=== PATIENT | female | born 1980 | race Caucasian/White ===

== ENCOUNTER 2020-09-23 15:37 | Outpatient (CLI) | payer OTHER ==
[~2020-09-23] VITALS: Ht 157.5 cm; Wt 88.2 kg
[2020-09-23 15:52] VITALS: BP 141/74
[2020-09-23 16:13] LABS: BASOPHILS % (AUTO) 0 % (0-1); EOSINOPHILS % (AUTO) 0 % (1-7); LYMPHOCYTES % (AUTO) 14 % (22-44); MEAN CORPUSCULAR HGB CONC 34.8 g/dL (32.4-35.8); MEAN PLATELET VOLUME 8.9 fL (7.4-10.4); MONOCYTES % (AUTO) 9 % (2-9); NEUTROPHILS % (AUTO) 76 % (42-75); PLATELET COUNT 203 x10^3/uL (130-400); RED BLOOD COUNT 3.51 x10^6/uL (3.82-5.3); RED CELL DISTRIBUTION WIDTH 14.7 % (9.6-15.2)
[2020-09-23 16:18] LABS: MD NO
[2020-09-23 16:19] LABS: ALBUMIN 2.7 g/dL (3.4-5.0); ANION GAP 11 mmol/L (5-15); CALCIUM 10.9 mg/dL (8.5-10.1); CHLORIDE 107 mmol/L (98-107)
[2020-09-23 16:22] LABS: ALANINE AMINOTRANSFERASE 16 U/L (12-78); ALKALINE PHOSPHATASE 93 U/L (45-117); BILIRUBIN, DIRECT < 0.1 mg/dL (0.1-0.2); BILIRUBIN,TOTAL 0.2 mg/dL (0.2-1.0); CREATININE 0.66 mg/dL (0.55-1.02); TOTAL PROTEIN 6.3 g/dL (6.4-8.2)
[2020-09-23 17:18] LABS: MICROSCOPIC INDICATED
[2020-09-23 17:25] LABS: CREATININE,URINE RANDOM 33.3 mg/dL
[2020-09-23] MEDS ORDERED: PREN1TAB60 PO (18:16)
== END 2020-09-23 18:30 | disposition home or self-care (01) ==
LOC: LDOP 15:37
PROVIDERS: ATTEND Obstetrics & Gynecology
DX: O09.93 Supervision of high risk pregnancy, unspecified, third trimester (principal); O16.3 Unspecified maternal hypertension, third trimester; Z3A.35 35 weeks gestation of pregnancy
CPT/HCPCS: 36415; 59025; 80053; 81001; 82248; 82570; 84156; 84550; 85025; 87086

== ENCOUNTER 2020-10-07 08:39 | Outpatient (CLI) | payer OTHER ==
[~2020-10-07] VITALS: Ht 157.5 cm; Wt 87.2 kg
[~2020-10-07 08:39] MED LIST: PREN1TAB60 PO
[2020-10-07 08:55] VITALS: BP 129/64
[2020-10-07 09:00] LABS: BASOPHILS % (AUTO) 0 % (0-1); EOSINOPHILS % (AUTO) 1 % (1-7); LYMPHOCYTES % (AUTO) 15 % (22-44); MEAN CORPUSCULAR HEMOGLOBIN 34.1 pg (27.0-34.8); MEAN CORPUSCULAR HGB CONC 35.5 g/dL (32.4-35.8); MONOCYTES % (AUTO) 7 % (2-9); NEUTROPHILS % (AUTO) 77 % (42-75); PLATELET COUNT 182 x10^3/uL (130-400); RED BLOOD COUNT 3.35 x10^6/uL (3.82-5.3); RED CELL DISTRIBUTION WIDTH 14.7 % (9.6-15.2)
[2020-10-07 09:08] LABS: MD NO
[2020-10-07 09:11] LABS: ALANINE AMINOTRANSFERASE 16 U/L (12-78); ALBUMIN 2.6 g/dL (3.4-5.0); ANION GAP 6 mmol/L (5-15); CALCIUM 8.9 mg/dL (8.5-10.1); CHLORIDE 109 mmol/L (98-107); CREATININE 0.59 mg/dL (0.55-1.02)
[2020-10-07 09:13] LABS: ALKALINE PHOSPHATASE 89 U/L (45-117); BILIRUBIN,TOTAL 0.3 mg/dL (0.2-1.0)
[2020-10-07 09:29] LABS: MICROSCOPIC INDICATED
== END 2020-10-07 10:20 | disposition home or self-care (01) ==
LOC: LDOP 08:39
PROVIDERS: ATTEND Obstetrics & Gynecology
DX: O32.1XX0 Maternal care for breech presentation, not applicable or unspecified (principal); O09.513 Supervision of elderly primigravida, third trimester; O16.3 Unspecified maternal hypertension, third trimester; Z3A.37 37 weeks gestation of pregnancy
CPT/HCPCS: 36415; 59025; 80053; 81001; 82570; 84156; 84550; 85025

== ENCOUNTER 2020-10-13 20:34 | Inpatient (IN) | payer OTHER ==
[~2020-10-13] VITALS: Ht 157.5 cm; Wt 90.0 kg
[2020-10-13] MEDS ORDERED: D5%-LACTATED RINGERS 1,000 ML IV SCH (21:00)
[2020-10-13] MEDS ORDERED: TERBUTALINE 1 MG/ML, 1ML SQ PRN (21:00)
[2020-10-13] MEDS ORDERED: TERBUTALINE 1 MG/ML, 1ML IVPush PRN (21:00)
[2020-10-13] MEDS ORDERED: METOCLOPRAMIDE 5 MG/ML, 2ML IVPush PRN (21:00)
[2020-10-13] MEDS ORDERED: CALCIUM CARBONATE 500 MG TAB.CHEW PO PRN (21:00)
[2020-10-13] MEDS ORDERED: FENTANYL PF 100 MCG/2ML IV PRN (21:00)
[2020-10-13] MEDS ORDERED: SODIUM CITRATE/CITRIC ACID 30 ML UDC PO PRN (21:00)
[2020-10-13] MEDS ORDERED: OXYTOCIN 30U/ 0.9% NaCL 500ML 500 ML IV ONE (21:00)
[2020-10-13] MEDS ORDERED: ONDANSETRON 2MG/ML, 2ML IVPush PRN (21:00)
[2020-10-13] MEDS ORDERED: PLEASE ENTER HEIGHT AND WEIGHT MC SCH (21:05)
[2020-10-13 21:07] VITALS: BP 146/68
[2020-10-13] MEDS: LACTATED RINGERS 1,000 ML IV SCH (21:10)
[2020-10-13] MEDS ORDERED: NEWBORN KIT ONE (21:11)
[2020-10-13] MEDS ORDERED: OXYTOCIN 30U/ 0.9% NaCL 500ML 500 ML ONE (21:11)
[2020-10-13] MEDS ORDERED: MISOPROSTOL 25 MCG TABLET ONE (21:18)
[2020-10-13 21:22] LABS: BASOPHILS % (AUTO) 0 % (0-1); EOSINOPHILS % (AUTO) 1 % (1-7); LYMPHOCYTES % (AUTO) 19 % (22-44); MEAN CORPUSCULAR HEMOGLOBIN 33.7 pg (27.0-34.8); MEAN PLATELET VOLUME 9.2 fL (7.4-10.4); MONOCYTES % (AUTO) 9 % (2-9); NEUTROPHILS % (AUTO) 71 % (42-75); PLATELET COUNT 203 x10^3/uL (130-400); RED BLOOD COUNT 3.41 x10^6/uL (3.82-5.3); RED CELL DISTRIBUTION WIDTH 14.4 % (9.6-15.2)
[2020-10-13 21:24] LABS: MD NO
[2020-10-13] MEDS ORDERED: MISOPROSTOL 25 MCG TABLET VG PRN (21:30)
[2020-10-13 21:33] LABS: ALANINE AMINOTRANSFERASE 18 U/L (12-78); ALBUMIN 2.5 g/dL (3.4-5.0); ANION GAP 8 mmol/L (5-15); CALCIUM 9.3 mg/dL (8.5-10.1); CHLORIDE 107 mmol/L (98-107); CREATININE 0.77 mg/dL (0.55-1.02)
[2020-10-13 21:35] LABS: BILIRUBIN, DIRECT < 0.1 mg/dL (0.1-0.2)
[2020-10-13 21:36] LABS: ALKALINE PHOSPHATASE 96 U/L (45-117); BILIRUBIN,TOTAL 0.2 mg/dL (0.2-1.0); TOTAL PROTEIN 6.1 g/dL (6.4-8.2)
[2020-10-14] MEDS ORDERED: OXYTOCIN 30U/ 0.9% NaCL 500ML 500 ML IV PRN (06:00)
[2020-10-14] MEDS: LACTATED RINGERS 1,000 ML IV SCH (07:11)
[2020-10-14] MEDS: FENTANYL PF 100 MCG/2ML IVPush PRN ×2 (09:04→13:43)
[2020-10-14 16:30] VITALS: BP 135/72
[2020-10-14] MEDS ORDERED: FENTANYL/BUPIV./NS/PF 250 ML EPIDCONT ONE (20:51)
[2020-10-14] MEDS ORDERED: BUPIVACAINE 0.25% ONE (21:01)
[2020-10-14] MEDS ORDERED: EPHEDRINE 50 MG/ML, 1ML IVPush PRN (21:30)
[2020-10-14] MEDS ORDERED: NALOXONE 0.4 MG/ML, 1ML IVPush PRN (21:30)
[2020-10-14] MEDS ORDERED: FENTANYL/BUPIV./NS/PF 250 ML EPIDCONT SCH (21:30)
[2020-10-14] MEDS ORDERED: ONDANSETRON 2MG/ML, 2ML IVPush PRN (21:30)
[2020-10-14] MEDS ORDERED: LACTATED RINGERS 1,000 ML IVBOLUS PRN (21:30)
[2020-10-14] MEDS ORDERED: LACTATED RINGERS 1,000 ML IV SCH (21:30)
[2020-10-14] MEDS ORDERED: DIPHENHYDRAMINE 50 MG/ML, 1ML IVPush PRN (21:30)
[2020-10-15] MEDS ORDERED: DIPHENHYDRAMINE 50 MG/ML, 1ML IVPush ONE (04:00)
[2020-10-15] MEDS ORDERED: SODIUM CITRATE/CITRIC ACID 15 ML UDC ONE (08:46)
[2020-10-15] MEDS: AMPICILLIN 2 GM in SODIUM CHLORIDE 0.9% 100 ML IV SCH ×3 (08:53→21:20)
[2020-10-15] MEDS ORDERED: MIDAZOLAM 1 MG/ML, 2ML IV PRN (09:00)
[2020-10-15] MEDS ORDERED: ALBUTEROL SULFATE 2.5 MG/3 ML NPPB PRN (09:00)
[2020-10-15] MEDS ORDERED: MEPERIDINE/PF 25MG/0.5ML IVPush PRN (09:00)
[2020-10-15] MEDS ORDERED: ONDANSETRON 2MG/ML, 2ML IVPush PRN (09:00)
[2020-10-15] MEDS ORDERED: EPHEDRINE 50 MG/ML, 1ML IVPush PRN (09:00)
[2020-10-15] MEDS ORDERED: AZITHROMYCIN 500 MG in SODIUM CHLORIDE 0.9% 250 ML IV ONE (09:00)
[2020-10-15] MEDS ORDERED: OXYcodone 5 MG/5 ML ORAL.SOL UDC PO PRN (09:00)
[2020-10-15] MEDS ORDERED: LABETALOL 5MG/ML, 20ML IV PRN (09:00)
[2020-10-15] MEDS ORDERED: PROMETHAZINE 25 MG/ML, 1ML IV PRN (09:00)
[2020-10-15] MEDS ORDERED: hydrALAzine 20 MG/ML, 1ML IV PRN (09:00)
[2020-10-15] MEDS ORDERED: HYDROmorphone 2 MG/ML, 1ML IVPush PRN (09:00)
[2020-10-15] MEDS ORDERED: PHARMACOKINETIC CONSULTATION MC ONE (09:00)
[2020-10-15] MEDS ORDERED: GENTAMICIN PER PHARMACY MC PRN (09:00)
[2020-10-15] MEDS ORDERED: HYDROcodone/APAP 7.5-325MG/15ML UDC PO PRN (09:00)
[2020-10-15] MEDS ORDERED: FENTANYL PF 100 MCG/2ML IV PRN (09:00)
[2020-10-15] MEDS ORDERED: PROPOFOL 10 MG/ML, 20ML ONE (09:03)
[2020-10-15] MEDS ORDERED: CEFAZOLIN 1,000 MG ONE (09:03)
[2020-10-15] MEDS ORDERED: SUCCINYLCHOLINE 20 MG/ML, 10ML ONE (09:03)
[2020-10-15] MEDS ORDERED: KETOROLAC 30 MG/1 ML ONE (09:03)
[2020-10-15] MEDS ORDERED: ONDANSETRON 2MG/ML, 2ML ONE (09:03)
[2020-10-15] MEDS ORDERED: PHENYLEPHRINE 10 MG/ML ONE (09:03)
[2020-10-15] MEDS ORDERED: DEXAMETHASONE 4 MG/ML, 1ML ONE (09:03)
[2020-10-15] MEDS ORDERED: FENTANYL PF 100 MCG/2ML ONE ×2 (09:03)
[2020-10-15] MEDS ORDERED: OXYTOCIN 10 UNITS/ML, 1ML ONE (09:03)
[2020-10-15] MEDS ORDERED: EPHEDRINE 50 MG/ML, 1ML ONE (09:03)
[2020-10-15] MEDS ORDERED: morphine SULFATE/PF 0.5 MG/ML, 10ML ONE (09:04)
[2020-10-15] MEDS: KETOROLAC 30 MG/1 ML IV SCH (09:30)
[2020-10-15] MEDS: OXYTOCIN 30U/ 0.9% NaCL 500ML 500 ML IV SCH ×2 (09:30→19:30)
[2020-10-15] MEDS ORDERED: LACTATED RINGERS 1,000 ML IVBOLUS ONE (09:30)
[2020-10-15] MEDS ORDERED: ONDANSETRON 2MG/ML, 2ML IV PRN (09:30)
[2020-10-15] MEDS ORDERED: OXYcodone/APAP 5/325MG TABLET PO PRN (09:30)
[2020-10-15] MEDS ORDERED: ACETAMINOPHEN 325 MG TABLET PO PRN (09:30)
[2020-10-15] MEDS ORDERED: MISOPROSTOL 200 MCG TABLET PR PRN (09:30)
[2020-10-15] MEDS ORDERED: GENTAMICIN 140 MG in SODIUM CHLORIDE 0.9% 50 ML IV SCH (10:00)
[2020-10-15] MEDS ORDERED: GENTAMICIN 180 MG in SODIUM CHLORIDE 0.9% 100 ML IV ONE (10:00)
[2020-10-15] MEDS: LACTATED RINGERS 1,000 ML IV SCH ×4 (10:30→20:30)
[2020-10-15 12:30] VITALS: BP 125/78
[2020-10-15] MEDS: OXYcodone IR 5MG TABLET PO PRN ×2 (15:24→21:14)
[2020-10-15 16:35] VITALS: BP 134/83
[2020-10-15 17:49] LABS: BASOPHILS % (AUTO) 0 % (0-1); EOSINOPHILS % (AUTO) 0 % (1-7); LYMPHOCYTES % (AUTO) 7 % (22-44); MEAN CORPUSCULAR HEMOGLOBIN 33.4 pg (27.0-34.8); MEAN CORPUSCULAR HGB CONC 34.9 g/dL (32.4-35.8); MEAN PLATELET VOLUME 8.6 fL (7.4-10.4); MONOCYTES % (AUTO) 8 % (2-9); NEUTROPHILS % (AUTO) 86 % (42-75); PLATELET COUNT 187 x10^3/uL (130-400); RED BLOOD COUNT 2.84 x10^6/uL (3.82-5.3); RED CELL DISTRIBUTION WIDTH 14.8 % (9.6-15.2)
[2020-10-15] MEDS: GENTAMICIN 140 MG in SODIUM CHLORIDE 0.9% 50 ML IV SCH (18:16)
[2020-10-15 18:38] LABS: MD SCAN
[2020-10-15 19:24] VITALS: BP 135/81
[2020-10-15] MEDS: SIMETHICONE 80 MG CHEW TAB PO PRN (21:13)
[2020-10-15] MEDS: DOCUSATE 100 MG CAPSULE PO PRN (21:13)
[2020-10-16 01:00] VITALS: BP 124/80
[2020-10-16] MEDS: ACETAMINOPHEN 325 MG TABLET PO PRN ×2 (01:13→14:07)
[2020-10-16] MEDS: OXYcodone IR 5MG TABLET PO PRN ×6 (01:14→22:21)
[2020-10-16] MEDS: GENTAMICIN 140 MG in SODIUM CHLORIDE 0.9% 50 ML IV SCH ×2 (01:16→10:27)
[2020-10-16] MEDS: AMPICILLIN 2 GM in SODIUM CHLORIDE 0.9% 100 ML IV SCH ×2 (02:01→09:09)
[2020-10-16] MEDS: LACTATED RINGERS 1,000 ML IV SCH ×5 (02:30→18:30)
[2020-10-16] MEDS: OXYTOCIN 30U/ 0.9% NaCL 500ML 500 ML IV SCH ×2 (05:30→15:30)
[2020-10-16 05:33] VITALS: BP 122/80
[2020-10-16 07:51] VITALS: BP 119/77
[2020-10-16] MEDS: KETOROLAC 30 MG/1 ML IV SCH ×3 (09:09→21:08)
[2020-10-16] MEDS: SIMETHICONE 80 MG CHEW TAB PO PRN (09:09)
[2020-10-16] MEDS: DOCUSATE 100 MG CAPSULE PO PRN ×2 (09:09→21:08)
[2020-10-16] MEDS: PRENATAL VIT/IRON/FA 1 EACH TABLET PO SCH (09:09)
[2020-10-16 20:20] VITALS: BP 129/79
[2020-10-17] MEDS: OXYTOCIN 30U/ 0.9% NaCL 500ML 500 ML IV SCH (01:30)
[2020-10-17] MEDS: LACTATED RINGERS 1,000 ML IV SCH ×2 (02:30)
[2020-10-17] MEDS: OXYcodone IR 5MG TABLET PO PRN ×2 (02:56→08:02)
[2020-10-17] MEDS: KETOROLAC 30 MG/1 ML IV SCH ×2 (02:56→09:36)
[2020-10-17 08:00] VITALS: BP 136/84
[2020-10-17] MEDS: PRENATAL VIT/IRON/FA 1 EACH TABLET PO SCH (08:01)
[2020-10-17] MEDS: DOCUSATE 100 MG CAPSULE PO PRN (08:02)
[2020-10-17] MEDS ORDERED: KETOROLAC 30 MG/1 ML ONE (09:32)
[2020-10-17] MEDS ORDERED: MEASLES,MUMPS&RUBELLA VACC/PF 0.5 ML SQ-VACC ONE (10:00)
[2020-10-17] MEDS ORDERED: IBUP-1222 PO (11:08)
[2020-10-17] MEDS ORDERED: OXYC5CAP2 PO (11:09)
== END 2020-10-17 11:45 | disposition home or self-care (01) | DRG 788 ==
LOC: LDOP 20:34 → LDIP 20:56 → 2NW 10-15 12:08
PROVIDERS: ADMIT Obstetrics & Gynecology; ATTEND Obstetrics & Gynecology
PROC: 10D00Z1 Extraction of Products of Conception, Low, Open Approach (ICD-10-PCS; principal; 2020-10-15)
PROC: 0U7C7ZZ Dilation of Cervix, Via Natural or Artificial Opening (ICD-10-PCS; 2020-10-15)
PROC: 10H07YZ Insertion of Other Device into Products of Conception, Via Natural or Artificial Opening (ICD-10-PCS; 2020-10-15)
DX: O13.4 Gestational [pregnancy-induced] hypertension without significant proteinuria, complicating childbirth (principal); O33.9 Maternal care for disproportion, unspecified; O62.2 Other uterine inertia; O69.81X0 Labor and delivery complicated by cord around neck, without compression, not applicable or unspecified; Z37.0 Single live birth; Z3A.38 38 weeks gestation of pregnancy; Z23 Encounter for immunization; Z20.822 Contact with and (suspected) exposure to COVID-19; Z91.018 Allergy to other foods
CPT/HCPCS: 36415; 80053; 82248; 82570; 84156; 84550; 85025; 86592; 86850; 86900; 87635; 88307; 90707; G0378; J0290; J0456; J0690; J1100; J1885; J2274; J2405; J2704; J3010; J0330; J1200; J1580; J2370; J2590; J2765; J7050; J7120

== ENCOUNTER 2020-11-02 00:07 | Emergency (ER) | payer SELFPAY ==
[~2020-11-02] VITALS: Ht 157.5 cm; Wt 80.0 kg
[~2020-11-02 00:07] MED LIST changes: +IBUP-1222 PO; +OXYC5CAP2 PO
[2020-11-02] MEDS ORDERED: SODIUM CHLORIDE 0.9% 1,000ML IVBOLUS ONE (00:30)
[2020-11-02] MEDS ORDERED: SODIUM CHLORIDE FLUSH 10ML SYR IVF ONE (00:30)
[2020-11-02 00:38] LABS: BASOPHILS % (AUTO) 1 % (0-1); EOSINOPHILS % (AUTO) 3 % (1-7); LYMPHOCYTES % (AUTO) 43 % (22-44); MEAN PLATELET VOLUME 7.7 fL (7.4-10.4); MONOCYTES % (AUTO) 6 % (2-9); NEUTROPHILS % (AUTO) 48 % (42-75); PLATELET COUNT 393 x10^3/uL (130-400); RED BLOOD COUNT 3.67 x10^6/uL (3.82-5.3); RED CELL DISTRIBUTION WIDTH 14.1 % (9.6-15.2)
--- NOTE | 2020-11-02 00:41 | NUR ---
Pt arrived with VB x20 mins that has already soaked through two pads and two diapers. Pt had a on the and has minimal bleeding since tonight. Pt is conected to BP and O2 monitors, IV placed per orders and labs drawn, pt states that she feels light headed, nausea, and dizzy. Side rails up x2, US at bedside. VSS, WCTM
[2020-11-02 00:44] LABS: ALANINE AMINOTRANSFERASE 19 U/L (12-78); ALBUMIN 3.2 g/dL (3.4-5.0); ANION GAP 7 mmol/L (5-15); CALCIUM 8.6 mg/dL (8.5-10.1); CHLORIDE 108 mmol/L (98-107); CREATININE 0.76 mg/dL (0.55-1.02)
[2020-11-02 00:48] LABS: ALKALINE PHOSPHATASE 110 U/L (45-117); BILIRUBIN,TOTAL 0.2 mg/dL (0.2-1.0); TOTAL PROTEIN 6.7 g/dL (6.4-8.2)
[2020-11-02 02:12] VITALS: BP 108/58
== END 2020-11-02 04:18 | disposition home or self-care (01) ==
LOC: ED 00:20
DX: N93.8 Other specified abnormal uterine and vaginal bleeding (principal); R00.0 Tachycardia, unspecified; Z87.891 Personal history of nicotine dependence
CPT/HCPCS: 36415; 76830; 80053; 84702; 85025; 96360; 96361; 99284; J7030

== ENCOUNTER 2020-11-10 15:07 | Emergency (ER) | payer OTHER ==
[~2020-11-10] VITALS: Ht 160 cm; Wt 77.2 kg
[2020-11-10 15:56] LABS: BASOPHILS % (AUTO) 1 % (0-1); EOSINOPHILS % (AUTO) 4 % (1-7); LYMPHOCYTES % (AUTO) 40 % (22-44); MEAN CORPUSCULAR HEMOGLOBIN 32.6 pg (27.0-34.8); MEAN CORPUSCULAR HGB CONC 34.8 g/dL (32.4-35.8); MEAN PLATELET VOLUME 8.1 fL (7.4-10.4); MONOCYTES % (AUTO) 7 % (2-9); NEUTROPHILS % (AUTO) 49 % (42-75); PLATELET COUNT 351 x10^3/uL (130-400); RED BLOOD COUNT 3.57 x10^6/uL (3.82-5.3); RED CELL DISTRIBUTION WIDTH 13.7 % (9.6-15.2)
[2020-11-10 15:59] LABS: ALANINE AMINOTRANSFERASE 21 U/L (12-78); ALBUMIN 3.5 g/dL (3.4-5.0); ANION GAP 5 mmol/L (5-15); CALCIUM 8.4 mg/dL (8.5-10.1); CHLORIDE 110 mmol/L (98-107); CREATININE 0.75 mg/dL (0.55-1.02)
[2020-11-10 16:02] LABS: ALKALINE PHOSPHATASE 125 U/L (45-117); BILIRUBIN,TOTAL 0.2 mg/dL (0.2-1.0); TOTAL PROTEIN 7.2 g/dL (6.4-8.2)
--- NOTE | 2020-11-10 16:20 | NUR ---
ST CATH URINE COLLECTED/WALKED TO LAB. CALL LIGHT WITHIN REACH. VSS/UPDATED IN COMPUTER.
[2020-11-10 16:48] VITALS: BP 132/73
[2020-11-10 16:56] LABS: MICROSCOPIC NOT IND
--- NOTE | 2020-11-10 17:20 | NUR ---
PADS AND MATERNITY PANTIES PROVIDED. ERP AWAITING EGG PACKER CALL.
== END 2020-11-10 18:03 | disposition home or self-care (01) ==
LOC: ED 15:37
DX: N93.9 Abnormal uterine and vaginal bleeding, unspecified (principal); R42 Dizziness and giddiness
CPT/HCPCS: 36415; 76830; 80053; 81003; 84702; 85025; 99284

== ENCOUNTER 2020-12-09 22:40 | Inpatient (IN) | payer OTHER ==
[~2020-12-09] VITALS: Ht 157.5 cm; Wt 80.9 kg
--- NOTE | 2020-12-09 23:00 | NUR ---
Patient presents to ER c/o copious amount vaginal bleeding. Patient states she is 8 weeks and has a hx of the same, but this episode is the worst. She has been seen multiple times but has been told this is normal. This episode of bleeding started approximately 0300 this morning and has continued throughout the day. Over the last 30 minutes patient has soaked approx 4 pads. Patient is lethargic, pale, cool, and diaphoretic.
--- NOTE | 2020-12-09 23:15 | NUR ---
1st unit of RBCs initiated emergently. Blood product documentation on paper in chart.
--- NOTE | 2020-12-09 23:17 | NUR ---
2nd unit of RBCs initiated.
[2020-12-09] MEDS ORDERED: ONDANSETRON 2MG/ML, 2ML ONE (23:24)
[2020-12-09] MEDS ORDERED: SODIUM CHLORIDE 0.9% 1,000ML IVBOLUS ONE (23:30)
[2020-12-09] MEDS ORDERED: ONDANSETRON 2MG/ML, 2ML IVPush ONE (23:30)
--- NOTE | 2020-12-09 23:30 | NUR ---
Ramy FENG collected and walked to lab.
[2020-12-09 23:33] LABS: BASOPHILS % (AUTO) 1 % (0-1); EOSINOPHILS % (AUTO) 2 % (1-7); LYMPHOCYTES % (AUTO) 55 % (22-44); MEAN CORPUSCULAR HEMOGLOBIN 32.5 pg (27.0-34.8); MEAN CORPUSCULAR HGB CONC 34.3 g/dL (32.4-35.8); MEAN PLATELET VOLUME 8.2 fL (7.4-10.4); MONOCYTES % (AUTO) 6 % (2-9); NEUTROPHILS % (AUTO) 37 % (42-75); PLATELET COUNT 422 x10^3/uL (130-400); RED BLOOD COUNT 2.54 x10^6/uL (3.82-5.3); RED CELL DISTRIBUTION WIDTH 13.9 % (9.6-15.2)
--- NOTE | 2020-12-09 23:43 | NUR ---
patient BP responsive to PRBC treatment. BP improved to 99/55. Patient more alert and less lethargic
[2020-12-09 23:46] LABS: ALANINE AMINOTRANSFERASE 17 U/L (12-78); ANION GAP 11 mmol/L (5-15); CALCIUM 8.1 mg/dL (8.5-10.1); CHLORIDE 108 mmol/L (98-107); CREATININE 0.99 mg/dL (0.55-1.02); PROTHROMBIN TIME 10.7 Seconds (9.6-11.5)
[2020-12-09 23:47] LABS: PARTIAL THROMBOPLASTIN TIME < 23 Seconds (25-31)
[2020-12-09 23:50] LABS: ALKALINE PHOSPHATASE 127 U/L (45-117); BILIRUBIN,TOTAL 0.1 mg/dL (0.2-1.0); TOTAL PROTEIN 6.3 g/dL (6.4-8.2)
--- NOTE | 2020-12-09 23:52 | NUR ---
1st unit of FFP started
--- NOTE | 2020-12-10 00:35 | NUR ---
All blood products complete. Patient "feeling much better." Patient skin pwd. Alert and oriented.
[2020-12-10] MEDS ORDERED: IBUPROFEN 600 MG TABLET PO PRN (01:00)
[2020-12-10] MEDS ORDERED: ONDANSETRON ODT 4 MG PO PRN (01:00)
[2020-12-10] MEDS ORDERED: ACETAMINOPHEN 325 MG TABLET PO PRN (01:00)
[2020-12-10] MEDS ORDERED: MISOPROSTOL 200 MCG TABLET PR ONE (01:00)
[2020-12-10] MEDS ORDERED: DOCUSATE 100 MG CAPSULE PO PRN (01:00)
[2020-12-10] MEDS ORDERED: METHYLERGONOVINE 0.2 MG/ML IM ONE (01:00)
[2020-12-10] MEDS ORDERED: MISOPROSTOL 100 MCG TABLET PO ONE (01:00)
--- NOTE | 2020-12-10 02:11 | NUR ---
Report to SERGE Pascual. Patient to be transferred to room 449.
[2020-12-10] MEDS: LACTATED RINGERS 1,000 ML IV SCH ×2 (02:54→10:45)
[2020-12-10 03:08] VITALS: BP 115/82
[2020-12-10 03:23] LABS: MICROSCOPIC AUTO
[2020-12-10] MEDS ORDERED: DIPHENHYDRAMINE 25 MG CAPSULE PO ONE (04:00)
[2020-12-10 08:25] VITALS: BP 107/71
[2020-12-10] MEDS ORDERED: NORGESTIMATE-ETHINYL ESTRADIOL TABLET PO SCH (09:00)
[2020-12-10] MEDS ORDERED: RHOGAM FROM BLOOD BANK 1 NOTE EA IM/IV ONE (09:00)
[2020-12-10 12:13] LABS: BASOPHILS % (AUTO) 0 % (0-1); EOSINOPHILS % (AUTO) 1 % (1-7); LYMPHOCYTES % (AUTO) 29 % (22-44); MEAN CORPUSCULAR HEMOGLOBIN 31.1 pg (27.0-34.8); MEAN PLATELET VOLUME 7.7 fL (7.4-10.4); MONOCYTES % (AUTO) 6 % (2-9); NEUTROPHILS % (AUTO) 63 % (42-75); PLATELET COUNT 262 x10^3/uL (130-400); RED CELL DISTRIBUTION WIDTH 15.1 % (9.6-15.2)
[2020-12-10 12:22] VITALS: BP 108/73
[2020-12-10 12:52] VITALS: BP 108/73
[2020-12-10 13:59] VITALS: BP 108/73
[2020-12-10] MEDS ORDERED: DOCU-131 PO (17:17)
[2020-12-10 19:24] VITALS: BP 118/66
[2020-12-10] MEDS ORDERED: NORG1TAB6 PO (19:55)
[2020-12-10] MEDS ORDERED: ferr (19:56)
== END 2020-12-10 20:45 | disposition home or self-care (01) | DRG 760 ==
LOC: ED 23:10 → INTOOBSV 12-10 01:17 → EDIP 12-10 01:17 → 4NE 12-10 02:04 → OBSVTOIN 12-10 15:07
PROVIDERS: ADMIT Obstetrics & Gynecology; ATTEND Obstetrics & Gynecology
PROC: 30233K1 Transfusion of Nonautologous Frozen Plasma into Peripheral Vein, Percutaneous Approach (ICD-10-PCS; principal; 2020-12-09)
PROC: 30233N1 Transfusion of Nonautologous Red Blood Cells into Peripheral Vein, Percutaneous Approach (ICD-10-PCS; 2020-12-10)
PROC: 30233R1 Transfusion of Nonautologous Platelets into Peripheral Vein, Percutaneous Approach (ICD-10-PCS; 2020-12-10)
PROC: 3E0234Z Introduction of Serum, Toxoid and Vaccine into Muscle, Percutaneous Approach (ICD-10-PCS; 2020-12-10)
DX: N93.8 Other specified abnormal uterine and vaginal bleeding (principal); R57.9 Shock, unspecified; D64.9 Anemia, unspecified; Z20.822 Contact with and (suspected) exposure to COVID-19; Z87.891 Personal history of nicotine dependence; Z91.018 Allergy to other foods
CPT/HCPCS: 36415; 36430; 76830; 80053; 81001; 84703; 85025; 85610; 85730; 86078; 86850; 86900; 86923; 87040; 87086; 87635; 96361; 96374; G0378; J2405; J2790; J7030; J7120; P9016; P9017; P9035; Q0163

== ENCOUNTER 2020-12-15 23:05 | Observation (INO) | payer OTHER ==
[~2020-12-15] VITALS: Ht 157.5 cm; Wt 78.7 kg
[~2020-12-15 23:05] MED LIST changes: +DOCU-131 PO; +NORG1TAB6 PO; +ferr
--- NOTE | 2020-12-15 23:15 | NUR ---
PT STATES SHE IS 8 WEEKS , PT CAME IN LAST WEEK SUNDAY FOR SAME COMPLAINT AND REQUIRED A BLOOD TRANSFUSSION AND WAS TOLD TO COME BACK IF BLEEDING RESUMED/CONTINUED. PT STATES SHE SATURATED 2 PADS IN THE LAST 20 MINUTES AND IS CURRENTLY ON THE 3RD PAD AND STATES SHE IS PRETTY SURE ITS SATURATED WELL.
[2020-12-15 23:58] LABS: BASOPHILS % (AUTO) 0 % (0-1); EOSINOPHILS % (AUTO) 2 % (1-7); LYMPHOCYTES % (AUTO) 35 % (22-44); MEAN CORPUSCULAR HEMOGLOBIN 31.8 pg (27.0-34.8); MEAN CORPUSCULAR HGB CONC 34.2 g/dL (32.4-35.8); MEAN PLATELET VOLUME 7.7 fL (7.4-10.4); MONOCYTES % (AUTO) 8 % (2-9); NEUTROPHILS % (AUTO) 55 % (42-75); PLATELET COUNT 303 x10^3/uL (130-400); RED BLOOD COUNT 2.91 x10^6/uL (3.82-5.3); RED CELL DISTRIBUTION WIDTH 14.7 % (9.6-15.2)
[2020-12-16 00:09] LABS: ALBUMIN 3.2 g/dL (3.4-5.0); ANION GAP 6 mmol/L (5-15); CALCIUM 8.4 mg/dL (8.5-10.1); CHLORIDE 110 mmol/L (98-107)
[2020-12-16 00:14] LABS: ALANINE AMINOTRANSFERASE 16 U/L (12-78); ALKALINE PHOSPHATASE 101 U/L (45-117); BILIRUBIN,TOTAL 0.2 mg/dL (0.2-1.0); CREATININE 0.92 mg/dL (0.55-1.02); TOTAL PROTEIN 6.7 g/dL (6.4-8.2)
[2020-12-16 00:19] LABS: INTERNATIONAL NORMALIZED RATIO 0.93 (0.93-1.1)
--- NOTE | 2020-12-16 00:39 | NUR ---
PT LAYING IN BED, PT PROVIDED NEW PAD AND DISPOSABLE SHORTS TO WEAR, PT NAD AT THIS TIME, VSS, AT BEDSIDE
--- NOTE | 2020-12-16 01:33 | NUR ---
task RN: Report to Julio in [place]
--- NOTE | 2020-12-16 01:33 | NUR ---
Task RN: dr chavez states not to give PRBCs in ER unless pt becomes unstable. Julio, kristina RN in [place] notified of this in phone report. blood is not yet ready, per blood back. OR can give blood during operation if necessary.
[2020-12-16] MEDS ORDERED: OXYTOCIN 10 UNITS/ML, 1ML ONE (01:42)
[2020-12-16] MEDS ORDERED: MISOPROSTOL 200 MCG TABLET ONE (01:42)
[2020-12-16] MEDS ORDERED: SILVER NITRATE STICK TP ONE (01:42)
[2020-12-16] MEDS ORDERED: METHYLERGONOVINE 0.2 MG/ML IM ONE (01:42)
[2020-12-16] MEDS ORDERED: FENTANYL PF 100 MCG/2ML ONE ×3 (02:07→02:50)
[2020-12-16] MEDS ORDERED: MIDAZOLAM 1 MG/ML, 2ML ONE (02:07)
[2020-12-16] MEDS ORDERED: ONDANSETRON 2MG/ML, 2ML ONE ×2 (02:34→02:58)
[2020-12-16] MEDS ORDERED: SUCCINYLCHOLINE 20 MG/ML, 10ML ONE (02:34)
[2020-12-16] MEDS ORDERED: DEXAMETHASONE 4 MG/ML, 1ML ONE (02:34)
[2020-12-16] MEDS ORDERED: CEFAZOLIN 1,000 MG ONE (02:34)
[2020-12-16] MEDS ORDERED: PROPOFOL 10 MG/ML, 20ML ONE (02:34)
[2020-12-16] MEDS ORDERED: LIDOCAINE-MPF 2% ,5ML ONE (02:35)
[2020-12-16] MEDS: FENTANYL PF 100 MCG/2ML IV PRN ×2 (02:56→03:31)
[2020-12-16] MEDS ORDERED: OXYcodone/APAP 5/325MG TABLET PO PRN (03:00)
[2020-12-16] MEDS ORDERED: PROMETHAZINE 25 MG/ML, 1ML IVPush PRN (03:00)
[2020-12-16] MEDS: LACTATED RINGERS 1,000 ML IV SCH ×2 (03:00→11:59)
[2020-12-16] MEDS ORDERED: ESTRADIOL VALERATE 200 MG/5 ML IM ONE (03:00)
[2020-12-16] MEDS ORDERED: ACETAMINOPHEN 325 MG TABLET PO PRN (03:00)
[2020-12-16] MEDS ORDERED: ONDANSETRON 2MG/ML, 2ML IVPush PRN ×2 (03:00)
[2020-12-16] MEDS ORDERED: EPHEDRINE 50 MG/ML, 1ML IVPush PRN (03:00)
[2020-12-16] MEDS ORDERED: HYDROmorphone 1 MG/ML, 1ML INJ IVPush PRN (03:00)
[2020-12-16] MEDS ORDERED: OXYcodone 5 MG/5 ML ORAL.SOL UDC PO PRN (03:00)
[2020-12-16] MEDS ORDERED: LABETALOL 5MG/ML, 20ML IV PRN (03:00)
[2020-12-16] MEDS ORDERED: hydrALAzine 20 MG/ML, 1ML IV PRN (03:00)
[2020-12-16 03:10] LABS: BASOPHILS % (AUTO) 1 % (0-1); EOSINOPHILS % (AUTO) 1 % (1-7); LYMPHOCYTES % (AUTO) 32 % (22-44); MEAN CORPUSCULAR HGB CONC 34.3 g/dL (32.4-35.8); MEAN PLATELET VOLUME 7.7 fL (7.4-10.4); MONOCYTES % (AUTO) 7 % (2-9); NEUTROPHILS % (AUTO) 60 % (42-75); PLATELET COUNT 271 x10^3/uL (130-400); RED BLOOD COUNT 2.53 x10^6/uL (3.82-5.3); RED CELL DISTRIBUTION WIDTH 15.1 % (9.6-15.2)
[2020-12-16] MEDS ORDERED: PROMETHAZINE 25 MG/ML, 1ML ONE (03:18)
[2020-12-16 04:09] VITALS: BP 124/64
[2020-12-16] MEDS: IBUPROFEN 600 MG TABLET PO SCH ×2 (05:57→11:59)
[2020-12-16 07:43] VITALS: BP 104/70
[2020-12-16 12:39] VITALS: BP 109/72
== END 2020-12-16 16:06 | disposition home or self-care (01) ==
LOC: ED 23:22 → EDIP 12-16 02:46 → INTOOBSV 12-16 02:46 → 3N 12-16 04:01 → UNDODISIN 12-16 16:06
PROVIDERS: ADMIT Obstetrics & Gynecology; ATTEND Obstetrics & Gynecology
DX: O72.2 Delayed and secondary postpartum hemorrhage (principal); Z20.822 Contact with and (suspected) exposure to COVID-19; O90.81 Anemia of the puerperium; D64.9 Anemia, unspecified; O61.9 Failed induction of labor, unspecified; O13.4 Gestational [pregnancy-induced] hypertension without significant proteinuria, complicating childbirth; Z79.899 Other long term (current) drug therapy; Z87.891 Personal history of nicotine dependence
CPT/HCPCS: 36415; 59160; 80053; 84703; 85025; 85610; 86850; 86870; 86900; 86922; 86923; 87635; 88305; 96360; 96361; 99284; G0378; J0330; J0690; J1100; J1380; J2210; J2250; J2405; J2550; J2704; J3010; J3490; J7120; 96372; 96374; J2590